=== PATIENT | female | born 1965 | race Caucasian/White ===

== ENCOUNTER 2016-06-25 06:48 | Inpatient (IN) | payer OTHER ==
[~2016-06-25] VITALS: Ht 170.2 cm; Wt 74.5 kg
[~2016-06-25 06:48] MED LIST: DAILY MULTIPLE1 EACH PO; DEXILANT60 MG PO; FLEXERIL10 MG PO; IBUPROFEN400 MG PO; VICODIN 5-3001 EACH PO
[2016-06-25 07:30] LABS: EOSINOPHIL (%) 7.6 % (0-5); EOSINOPHIL COUNT 0.4 K/uL (0-0.3); HEMATOCRIT 44.5 % (36.0-46.0); IMMATURE GRANULOCYTE (%) 0.2 % (0.0-0.7); INSTRUMENT ABS NEUTROPHIL CT 2.5 K/uL; LYMPHOCYTE COUNT 1.4 K/uL (1.0-2.8); MCH 30.8 PG (29.0-34.0); MCHC 33.5 G/DL (30.0-36.0); MCV 92.1 FL (83-99); MEAN PLAT.VOLUME 10.5 uM^3 (9.5-12.4); MONOCYTE (%) 11.7 % (3-12); MONOCYTE COUNT 0.6 K/uL (0-0.8); NEUTROPHIL (%) 50.4 % (45-76); NEUTROPHIL COUNT 2.5 K/uL (1.8-6.4); PLATELET COUNT 205 K/uL (156-360); RBC DIS.WIDTH-CV 12.2 % (11.8-14.6); RBC DIS.WIDTH-SD 41.4 % (39-53); RED BLOOD COUNT 4.83 M/uL (3.80-5.20); WHITE BLOOD COUNT 4.9 K/uL (4.1-10.2)
[2016-06-25 07:32] LABS: CREATININE 0.7 mg/dL (0.6-1.3); POTASSIUM 3.6 mEq/L (3.7-5.4)
[2016-06-25 07:58] LABS: ADD MIUA? NO; BILIRUBIN NEGATIVE; BLOOD NEGATIVE; COLOR YELLOW ((YELLOW)); GLUCOSE (STRIP) NEGATIVE; KETONES NEGATIVE; LEUKOCYTES NEGATIVE; NITRITE NEGATIVE; PROTEIN (STRIP) NEGATIVE; SPECIFIC GRAVITY 1.006 (1.000-1.030); UCUL ADDED? NO; UROBILINOGEN 0.2 MG/DL (0.2-1.0)
[2016-06-25 07:59] LABS: PROTHROMBIN TIME 10.6 (9.2-11.2); PTT 28.2 (25-32)
[2016-06-25 08:11] LABS: QUANTITATIVE HCG 4.9 MIU/ML; TROP-I INTERPRETATION NEGATIVE; TROPONIN-I 0.01 ng/mL (0.0-0.30)
[2016-06-25 08:22] LABS: AMYLASE 39 IU/L (1-118); ANION GAP 8 MEQ/L (2-14); CHLORIDE 105 MEQ/L (99-109); POTASSIUM 3.9 MEQ/L (3.7-5.4); SAMPLE HEMOLYSIS CHECK 0; SAMPLE ICTERIC CHECK 0; SAMPLE LIPEMIA CHECK 0; SODIUM 140 MEQ/L (136-147)
[2016-06-25 08:27] LABS: AMPHETAMINE NEGATIVE (500 ng/mL); BARBITURATES NEGATIVE (200 ng/mL); BENZODIAZEPINES NEGATIVE (150 ng/mL); COCAINE NEGATIVE (150 ng/mL); INTERNAL CONTROLS VALID? YES; METHADONE NEGATIVE (200 ng/mL); METHAMPHETAMINE NEGATIVE (500 ng/mL); OPIATES (MORPHINE) NEGATIVE (100 ng/mL); OXYCODONE NEGATIVE (100 ng/mL); PHENCYCLIDINE NEGATIVE (25 ng/mL); PROPOXYPHENE NEGATIVE (300 ng/mL); THC CANNABINOIDS NEGATIVE (50 ng/mL); TRICYCLIC ANTIDEPRESSANTS NEGATIVE (300 ng/mL)
[2016-06-25 08:38] LABS: GFR ESTIMATE (CALCULATED) > 59 mL/min/; GLUCOSE 96 mg/dL (70-99); LIPASE 21 U/L (1.0-51.0); SERUM ETHYL ALCOHOL < 10 mg/dL; UREA NITROGEN (BUN) 17 mg/dL (9-23)
[2016-06-25] MEDS ORDERED: OTC HEARTBURN MED (08:41)
[2016-06-25] MEDS ORDERED: PREVACID 24HR15 MG PO (09:36)
[2016-06-25 20:00] VITALS: BP 134/84
[2016-06-26] VITALS (8 sets, daily range): BP systolic 132–169; BP diastolic 73–102
[2016-06-26 07:06] LABS: Estimated Average Glucose 108 mg/dL (70-123); HEMOGLOBIN A1c (GLYCOHEMOGLOB) 5.4 % HGB (Below 5.7)
[2016-06-26 07:16] LABS: HDL CHOLESTEROL 59 MG/DL (Desirable>=50); LDL CHOLESTEROL 125 mg/dL (Desirable<100); NON-HDL CHOLESTEROL 144 mg/dL (Desirable<160); TOTAL CHOLESTEROL 203 mg/dL (Desirable<200); TRIGLYCERIDES 94 MG/DL (Normal: <150)
[2016-06-27 03:50] VITALS: BP 156/67
[2016-06-27 08:00] VITALS: BP 143/92
[2016-06-27 08:00] LABS: EOSINOPHIL (%) 6.3 % (0-5); EOSINOPHIL COUNT 0.3 K/uL (0-0.3); IMMATURE GRANULOCYTE (%) 0.2 % (0.0-0.7); INSTRUMENT ABS NEUTROPHIL CT 2.8 K/uL; LYMPHOCYTE COUNT 1.4 K/uL (1.0-2.8); MCH 30.9 PG (29.0-34.0); MCHC 33.7 G/DL (30.0-36.0); MCV 91.9 FL (83-99); MEAN PLAT.VOLUME 10.1 uM^3 (9.5-12.4); MONOCYTE (%) 12.9 % (3-12); MONOCYTE COUNT 0.7 K/uL (0-0.8); NEUTROPHIL (%) 52.5 % (45-76); NEUTROPHIL COUNT 2.8 K/uL (1.8-6.4); PLATELET COUNT 173 K/uL (156-360); RBC DIS.WIDTH-SD 40.7 % (39-53); RED BLOOD COUNT 4.46 M/uL (3.80-5.20); WHITE BLOOD COUNT 5.3 K/uL (4.1-10.2)
[2016-06-27 08:30] LABS: ANION GAP 7 MEQ/L (2-14); CHLORIDE 104 MEQ/L (99-109); GFR ESTIMATE (CALCULATED) > 59 mL/min/; GLUCOSE 106 mg/dL (70-99); POTASSIUM 4.2 MEQ/L (3.7-5.4); SAMPLE HEMOLYSIS CHECK 0; SAMPLE ICTERIC CHECK 0; SAMPLE LIPEMIA CHECK 0; SODIUM 140 MEQ/L (136-147); UREA NITROGEN (BUN) 18 mg/dL (9-23)
[2016-06-27 13:50] LABS: Protein S, Free 78 % normal (50-147)
[2016-06-27 16:00] VITALS: BP 130/79
[2016-06-27 20:00] VITALS: BP 142/84
[2016-06-28] VITALS: BP 120/78
[2016-06-28 04:00] VITALS: BP 131/80
[2016-06-28 05:58] LABS: PROTEIN C FUNCTIONAL ACTIVITY+ 160 % (70-180)
[2016-06-28 07:23] LABS: EOSINOPHIL (%) 6.6 % (0-5); EOSINOPHIL COUNT 0.3 K/uL (0-0.3); HEMATOCRIT 40.8 % (36.0-46.0); IMMATURE GRANULOCYTE (%) 0.2 % (0.0-0.7); INSTRUMENT ABS NEUTROPHIL CT 2.6 K/uL; LYMPHOCYTE COUNT 1.4 K/uL (1.0-2.8); MCH 30.8 PG (29.0-34.0); MCHC 33.3 G/DL (30.0-36.0); MCV 92.3 FL (83-99); MEAN PLAT.VOLUME 10.5 uM^3 (9.5-12.4); MONOCYTE (%) 14.7 % (3-12); MONOCYTE COUNT 0.7 K/uL (0-0.8); NEUTROPHIL (%) 50.9 % (45-76); NEUTROPHIL COUNT 2.6 K/uL (1.8-6.4); PLATELET COUNT 174 K/uL (156-360); RBC DIS.WIDTH-SD 41.1 % (39-53); RED BLOOD COUNT 4.42 M/uL (3.80-5.20)
[2016-06-28 07:45] VITALS: BP 146/78
[2016-06-28 07:54] LABS: ANION GAP 7 MEQ/L (2-14); CHLORIDE 104 MEQ/L (99-109); GFR ESTIMATE (CALCULATED) > 59 mL/min/; GLUCOSE 91 mg/dL (70-99); POTASSIUM 4.6 MEQ/L (3.7-5.4); SAMPLE HEMOLYSIS CHECK 0; SAMPLE ICTERIC CHECK 0; SAMPLE LIPEMIA CHECK 0; SODIUM 140 MEQ/L (136-147); UREA NITROGEN (BUN) 16 mg/dL (9-23)
[2016-06-28 11:27] VITALS: BP 152/94
[2016-06-28] MEDS ORDERED: ASPIR-LOW81 MG PO (12:06)
[2016-06-28] MEDS ORDERED: NORVASC5 MG PO (12:06)
[2016-06-28] MEDS ORDERED: ATORVASTATIN CA40 MG PO (12:06)
[2016-06-28] MEDS ORDERED: PEPCID20 MG PO (13:51)
[2016-06-28] MEDS ORDERED: NORVASC2.5 MG PO (15:09)
[2016-07-01 09:47] LABS: ANTITHROMBIN III ACTIVITY+ 128 % activi (80-120)
== END 2016-06-28 13:15 | DRG 57 ==
LOC: EME 06:48 → 5SOUTH 10:02 → EDOF 10:02 → 5SOUTH 17:33
PROVIDERS: Emergency Medicine; Hospitalist; Internal Medicine; Psychiatry & Neurology Clinical Neurophysiology
DX: I69.354 Hemiplegia and hemiparesis following cerebral infarction affecting left non-dominant side (principal); I10 Essential (primary) hypertension; Z86.73 Personal history of transient ischemic attack (TIA), and cerebral infarction without residual deficits; F17.210 Nicotine dependence, cigarettes, uncomplicated
CPT/HCPCS: 70450; 70551; 80047; 80048; 80061; 81003; 81241 90; 82150; 83036; 83690; 84484; 84702; 85025; 85300 90; 85303 90; 85305 90; 85306 90; 85610; 85651; 85730; 86147 90; 86850; 86900; 86901; 92610 GN; 93005; 93306; 93880; 97530 GO; 99281; 99285; G0480; S0028

== ENCOUNTER 2016-06-28 10:44 | Inpatient (IN) | payer OTHER ==
[~2016-06-28] VITALS: Ht 170.2 cm; Wt 74.5 kg
[~2016-06-28 10:44] MED LIST changes: +OTC HEARTBURN MED; +PREVACID 24HR15 MG PO
[2016-06-28] MEDS ORDERED: ATORVASTATIN CA40 MG PO (12:06)
[2016-06-28] MEDS ORDERED: ASPIR-LOW81 MG PO (12:06)
[2016-06-28] MEDS ORDERED: NORVASC5 MG PO (12:06)
[2016-06-28 13:45] VITALS: BP 162/91
[2016-06-28] MEDS ORDERED: PEPCID20 MG PO (13:51)
[2016-06-28 15:00] VITALS: BP 138/102
[2016-06-28 15:02] VITALS: BP 140/94
[2016-06-28] MEDS ORDERED: NORVASC2.5 MG PO (15:09)
[2016-06-28 23:35] VITALS: BP 144/82
[2016-06-29 04:59] LABS: HEMATOCRIT 41.6 % (36.0-46.0); MCH 31.7 PG (29.0-34.0); MCHC 35.1 G/DL (30.0-36.0); MCV 90.4 FL (83-99); MEAN PLAT.VOLUME 10.3 uM^3 (9.5-12.4); PLATELET COUNT 191 K/uL (156-360); RBC DIS.WIDTH-CV 11.8 % (11.8-14.6)
[2016-06-29 05:19] LABS: CHLORIDE 107 mEq/L (99-109); POTASSIUM 4.4 mEq/L (3.7-5.4); SODIUM 140 mEq/L (136-147)
[2016-06-29 05:21] LABS: GLUCOSE 89 mg/dL (70-99)
[2016-06-29 05:23] LABS: ANION GAP 7 MEQ/L (2-14); TOTAL BILIRUBIN 0.9 mg/dL (0.0-1.0)
[2016-06-29 05:25] LABS: ALKALINE PHOSPHATASE 67 IU/L (3-129); GFR ESTIMATE (CALCULATED) > 59 mL/min/
[2016-06-29 05:26] LABS: UREA NITROGEN (BUN) 19 mg/dL (9-23)
[2016-06-29 05:33] VITALS: BP 128/53
[2016-06-29 15:47] VITALS: BP 131/79
[2016-06-30 05:52] VITALS: BP 130/85
[2016-06-30 15:00] VITALS: BP 121/88
[2016-07-01 04:41] VITALS: BP 139/88
[2016-07-01 05:38] LABS: HEMATOCRIT 39.3 % (36.0-46.0); MCH 31.1 PG (29.0-34.0); MCHC 33.8 G/DL (30.0-36.0); MEAN PLAT.VOLUME 10.5 uM^3 (9.5-12.4); PLATELET COUNT 175 K/uL (156-360); RBC DIS.WIDTH-CV 11.9 % (11.8-14.6); RBC DIS.WIDTH-SD 39.8 % (39-53); RED BLOOD COUNT 4.27 M/uL (3.80-5.20); WHITE BLOOD COUNT 5.3 K/uL (4.1-10.2)
[2016-07-01 06:52] LABS: ALKALINE PHOSPHATASE 61 IU/L (3-129); ANION GAP 4 MEQ/L (2-14); CHLORIDE 106 MEQ/L (99-109); GFR ESTIMATE (CALCULATED) > 59 mL/min/; GLUCOSE 88 mg/dL (70-99); POTASSIUM 4.1 MEQ/L (3.7-5.4); SAMPLE HEMOLYSIS CHECK 0; SAMPLE ICTERIC CHECK 0; SAMPLE LIPEMIA CHECK 0; SODIUM 139 MEQ/L (136-147); TOTAL BILIRUBIN 0.6 MG/DL (0.0-1.0); UREA NITROGEN (BUN) 15 mg/dL (9-23)
[2016-07-01 15:39] VITALS: BP 134/80
[2016-07-01] MEDS ORDERED: NORVASC2.5 MG PO (21:56)
[2016-07-01] MEDS ORDERED: ATORVASTATIN CA40 MG PO (21:56)
[2016-07-01] MEDS ORDERED: NORVASC5 MG PO (21:56)
[2016-07-01] MEDS ORDERED: LORATADINE10 M2 PO (21:56)
[2016-07-01] MEDS ORDERED: ASPIR-LOW81 MG PO (21:56)
[2016-07-01] MEDS ORDERED: MUCINEX600 MG PO (21:56)
[2016-07-02 05:58] VITALS: BP 145/92
== END 2016-07-02 11:26 | DRG 57 ==
LOC: 3WEST 10:44
PROVIDERS: Physical Medicine & Rehabilitation Pain Medicine
PROC: F07M0ZZ Range of Motion and Joint Mobility Treatment of Musculoskeletal System - Whole Body (ICD-10-PCS; principal; 2016-06-28)
DX: I69.354 Hemiplegia and hemiparesis following cerebral infarction affecting left non-dominant side (principal); I10 Essential (primary) hypertension; M19.042 Primary osteoarthritis, left hand; F17.210 Nicotine dependence, cigarettes, uncomplicated
CPT/HCPCS: 80053; 85027; 97110 GO; 97530 GP; J1650